=== PATIENT | female | born 1970 | race Caucasian/White ===

== ENCOUNTER 2019-07-31 15:15 | Emergency (ER) | payer OTHER ==
--- NOTE | 2019-07-31 18:18 | ED ---
Upper Extremity Pain - HPI Summary HPI Summary: Patient complains of sensation of pressure and tingling in her left forearm 1 hour. Patient was typing at work at time of onset. Pain has improved since onset. Denies any other known trauma. Denies history of blood clots. Patient sent by PCP to ED for further evaluation. Denies any other pain, injury or symptoms. - History of Current Complaint Chief Complaint: EDExtremityUpper Stated Complaint: PAIN IN LT ARM/TINGLING IN HAND PER PT Time Seen by Provider: 07/31/19 18:15 Hx Obtained From: Patient Mechanism Of Injury: Unknown Onset/Duration: Started Hours Ago Timing: Constant Severity Initially: Moderate Severity Currently: Mild Pain Location: Forearm Character: Dull, Aching Aggravating Factor(s): Movement Alleviating Factor(s): Other Associated Signs & Symptoms: Positive: Numbness/Tingling - Allergies/Home Medications Allergies/Adverse Reactions: Allergies Allergy/AdvReac Type Severity Reaction Status Date / Time Sulfa (Sulfonamide Allergy See Comment Verified 07/31/19 15:26 Antibiotics) PMH/Surg Hx/FS Hx/Imm Hx Endocrine/Hematology History: Denies: Hx Anticoagulant Therapy Cardiovascular History: Denies: Hx Pacemaker/ICD History: Denies: Hx Dialysis Musculoskeletal History: Denies: Hx Rheumatoid Arthritis, Hx Osteoporosis Sensory History: Denies: Hx Eye Prosthesis Opthamlomology History: Denies: Hx Legally Blind EENT History: Denies: Hx Deafness - Cancer History Hx Chemotherapy: No Hx Radiation Therapy: No Infectious Disease History: No Infectious Disease History: Denies: Traveled Outside the [place] in Last 30 Days - Family History Known Family History: Positive: Non-Contributory - Social History Alcohol Use: None Substance Use Type: Reports: None Smoking Status (MU): Never Smoked Tobacco Have You Smoked in the Last Year: No Review of Systems Constitutional: Negative Eyes: Negative ENT: Negative Cardiovascular: Negative Respiratory: Negative Gastrointestinal: Negative Genitourinary: Negative Musculoskeletal: Other Skin: Negative Neurological: Negative Psychological: Normal All Other Systems Reviewed And Are Negative: Yes Physical Exam - Summary Physical Exam Summary: No erythema, ecchymosis, deformity, swelling noted to left forearm. Nontender to palpation along the length of left upper extremity. PMS intact distally. Normal flexion and extension of each individual joint of fingers, hand, wrist, elbow, shoulder without pain. Triage Information Reviewed: Yes Vital Signs On Initial Exam: Initial Vitals Temp Pulse Resp BP Pulse Ox 98.3 F 90 19 161/99 99 07/31/19 15:22 07/31/19 15:22 07/31/19 15:22 07/31/19 15:22 07/31/19 15:22 Vital Signs Reviewed: Yes Appearance: Positive: Well-Appearing Skin: Positive: Warm Head/Face: Positive: Normal Head/Face Inspection Eyes: Positive: Normal Neck: Positive: Supple Respiratory/Lung Sounds: Positive: Clear to Auscultation Cardiovascular: Positive: Normal Abdomen Description: Positive: Nontender Musculoskeletal: Positive: Normal Neurological: Positive: Normal Psychiatric: Positive: Normal AVPU Assessment: Alert - Yanyc Coma Scale Best Eye Response: 4 - Spontaneous Best Motor Response: 6 - Obeys Commands Best Verbal Response: 5 - Oriented Coma Scale Total: 15 Procedures - Sedation Patient Received Moderate/Deep Sedation with Procedure: No Diagnostics - Vital Signs Vital Signs Temp Pulse Resp BP Pulse Ox 07/31/19 16:33 98.5 F 80 18 124/78 97 07/31/19 15:22 98.3 F 90 19 161/99 99 - Laboratory Lab Statement: Any lab studies that have been ordered have been reviewed, and results considered in the medical decision making process. Course/Dx - Course Course Of Treatment: Patient complains of sensation of pressure and tingling in her left forearm 1 hour. Patient was typing at work at time of onset. Pain has improved since onset. Denies any other known trauma. Denies history of blood clots. Patient sent by PCP to ED for further evaluation. Denies any other pain, injury or symptoms. Vital signs within normal limits. Ultrasound negative for DVT. - Diagnoses Provider Diagnoses: Left forearm pain Discharge ED - Sign-Out/Discharge Documenting (check all that apply): Patient Departure - Discharge Plan Condition: Stable Disposition: HOME Patient Education Materials: Arm Pain (ED) Referrals: Luci Mckeon MD [Primary Care Provider] - Additional Instructions: If ultrasound is positive for a DVT you will be contacted and treatment will be sent to pharmacy. Follow-up with primary care. Return to ED for any new or worsening symptoms. - Billing Disposition and Condition Condition: STABLE Disposition: Home
[2019-07-31 20:23] VITALS: BP 126/74
== END 2019-07-31 20:22 | disposition home or self-care (01) ==
LOC: ED 15:15
DX: M79.632 Pain in left forearm (principal); Z88.2 Allergy status to sulfonamides
CPT/HCPCS: 99282